=== PATIENT | female | born 1990 | race Caucasian/White ===

== ENCOUNTER 2018-09-13 20:45 | Emergency (ER) | payer MEDICAID ==
[2018-09-13 20:57] VITALS: BP 104/83
--- NOTE | 2018-09-13 21:49 | EDM.PDOC ---
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 She was told she can not get till September 2018. She came to the ed this pm because her came menstrual period lasted 2 days only and she was concerned she was . Pt will have "dye injected" in September 2018 in order to check if her tubes are open and healed from the ligation. She denied any pain, no dysuria, no N/V no dizziness, no breast tenderness or any other acute med issues. BP 104/83 RR 18 Pulse ox 100% on RA, Temp 97.0 pulse 83 BPM Onset Date: 09/13/18 Onset Time: 10:00 Duration: Hour(s): Location: Reports: Pelvis Severity: Mild Improves with: Reports: None Worsens with: Reports: None - Related Data Allergies Allergy/AdvReac Type Severity Reaction Status Date / Time No Known Allergies Allergy Verified 09/13/18 20:55 Past Medical History - Infectious Disease History Infectious Disease History: Reports: Chicken Pox - Past Surgical History Female Surgical History: Reports: Tubal Ligation Social & Family History - Family History Family Medical History: Noncontributory - Tobacco Use Smoking Status *Q: Current Every Day Smoker Years of Tobacco use: 10 Packs/Tins Daily: 0.3 - Caffeine Use Caffeine Use: Reports: Coffee, Soda - Recreational Drug Use Recreational Drug Use: No ED ROS GENERAL - Review of Systems Review Of Systems: See Below Constitutional: Reports: No Symptoms HEENT: Reports: No Symptoms Respiratory: Reports: No Symptoms Cardiovascular: Reports: No Symptoms Endocrine: Reports: No Symptoms GI/Abdominal: Reports: No Symptoms : Reports: No Symptoms Musculoskeletal: Reports: No Symptoms Skin: Reports: No Symptoms Neurological: Reports: No Symptoms Psychiatric: Reports: No Symptoms Hematologic/Lymphatic: Reports: No Symptoms Immunologic: Reports: No Symptoms ED EXAM - Physical Exam Exam: See Below Exam Limited By: No Limitations General Appearance: Alert, WD/WN, No Apparent Distress Eye Exam: Bilateral Eye: Normal Inspection Ears: Normal External Exam Nose: Normal Inspection Throat/Mouth: Normal Inspection Head: Atraumatic, Normocephalic Neck: Normal Inspection Respiratory/Chest: No Respiratory Distress, Lungs Clear Cardiovascular: Normal Peripheral Pulses GI/Abdominal Exam: Normal Bowel Sounds Rectal Exam: Deferred (Female) Exam: Deferred for Placenta Previa Back Exam: Normal Inspection Extremities: Normal Inspection Neurological: Alert, Oriented, CN II-XII Intact Psychiatric: Normal Affect Skin Exam: Warm Lymphatic: No Adenopathy Course - Vital Signs Text/Narrative:: 27 y.o.w.f s/p Tubal ligation 3 years ago, had her tubal ligation reversed in May 2018. She was told she can not get till September 2018. She came to the ed this pm because her came menstrual period lasted 2 days only and she was concerned she was . Pt will have "dye injected" in September 2018 in order to check if her tubes are open and healed from the ligation. She denied any pain, no dysuria, no N/V no dizziness, no breast tenderness or any other acute med issues. BP 104/83 RR 18 Pulse ox 100% on RA, Temp 97.0 pulse 83 BPM PE: WNWN WF in NAD wanting to know if she is and seen by me. Labs: HCG serum: <1 Impression: Neg Serum test Tx: none Reexam: Pt denied any discomfort but still wanted to be seen by me. Plan: D/C with instructions Last Recorded V/S: Last Vital Signs Temp Pulse 70 09/13/18 20:50 Resp 18 09/13/18 20:50 BP 104/83 09/13/18 20:50 Pulse Ox 100 09/13/18 20:50 - Orders/Labs/Meds Labs: Laboratory Tests 09/13/18 Range/Units 21:05 HCG, Quant < 1 L (<5) mIU/mL Departure - Departure Time of Disposition: 21:49 Disposition: Home, Self-Care 01 Condition: Good Clinical Impression: test negative - Discharge Information Instructions: Tubal Ligation Reversal Referrals: Fiorella Gordillo DIRECTOR [employer]ICAL SCIENCE [Primary Care Provider] - Forms: ED Department Discharge Additional Instructions: Please f/u with your PMD as needed.
== END 2018-09-13 21:50 | disposition home or self-care (01) ==
LOC: FB.ED 20:45
DX: Z32.02 Encounter for pregnancy test, result negative (principal); F17.210 Nicotine dependence, cigarettes, uncomplicated
CPT/HCPCS: 36415; 84702; 99282

== ENCOUNTER 2021-06-12 22:59 | Emergency (ER) | payer MEDICAID ==
[2021-06-12] MEDS ORDERED: Ciprofloxacin 500 MG Tab PO ONE (23:00)
[2021-06-12] MEDS ORDERED: traMADol 50 MG Tab PO ONE (23:00)
--- NOTE | 2021-06-12 23:16 | EDM.PDOC ---
ED HPI GENERAL MEDICAL PROBLEM - General Stated Complaint: RIB/CHEST PAIN Time Seen by Provider: 06/12/21 23:14 Source of Information: Reports: Patient History Limitations: Reports: No Limitations - History of Present Illness INITIAL COMMENTS - FREE TEXT/NARRATIVE: This is a 30 yo female with epispastic pain,and both upper quadrant pain since this morning. Nothing seems to improve it. Described as squeezing. Food apparently made it worse. No GI or symptoms - Related Data Allergies Allergy/AdvReac Type Severity Reaction Status Date / Time No Known Allergies Allergy Verified 09/13/18 20:55 Past Medical History - Infectious Disease History Infectious Disease History: Reports: Chicken Pox - Past Surgical History Female Surgical History: Reports: Tubal Ligation Social & Family History - Family History Family Medical History: No Pertinent Family History - Caffeine Use Caffeine Use: Reports: Coffee, Soda ED ROS GENERAL - Review of Systems Review Of Systems: Comprehensive ROS is negative, except as noted in HPI. ED EXAM, GI/ABD - Physical Exam Exam: See Below Exam Limited By: No Limitations Respiratory/Chest: No Respiratory Distress, Lungs Clear Cardiovascular: Normal Peripheral Pulses, Regular Rate, Rhythm GI/Abdominal Exam: Normal Bowel Sounds, Soft, Guarding, Tender. No: Distended, Mass, Hepatomegaly, Splenomegaly Neurological: Alert, Oriented Psychiatric: Normal Affect Course - Orders/Labs/Meds Orders: Active Orders 24 hr Category Date Time Status Abdomen Pelvis w Cont [CT] Stat Exams 06/12/21 23:12 Taken Labs: Laboratory Tests 06/12/21 06/12/21 06/12/21 Range/Units 23:25 23:25 23:25 WBC 7.3 (3.0-10.3) x10-3/uL RBC 4.11 (3.60-5.20) x10(6)uL Hgb 13.6 (11.4-15.5) g/dL Hct 38.9 (34.2-48.2) % MCV 94.7 (76.7-100.5) fL MCH 33.1 (23.9-33.9) pg MCHC 34.9 H (31.9-34.8) g/dL RDW 12.7 (12.3-16.5) % Plt Count 208 (151-488) x10(3)uL MPV 8.1 (7.1-12.4) fL Neut % (Auto) 58.7 (30.8-76.2) % Lymph % (Auto) 31.8 (18.4-52.1) % [place] % (Auto) 7.8 (4.4-15.7) % Eos % (Auto) 1.0 (0.6-8.1) % Baso % (Auto) 0.7 (0.2-1.5) % Neut # (Auto) 4.3 (1.5-6.3) x10-3/uL Lymph # (Auto) 2.3 (1.0-4.4) x10-3/uL [place] # (Auto) 0.6 (0.3-1.0) x10-3/uL Eos # (Auto) 0.1 (0.0-0.8) x10-3/uL Baso # (Auto) 0.1 (0.0-0.1) x10-3/uL Sodium 140 (135-145) mmol/L Potassium 3.6 (3.5-5.3) mmol/L Chloride 103 (100-110) mmol/L Carbon Dioxide 30 (21-32) mmol/L BUN 14 (7-18) mg/dL Creatinine 1.0 (0.55-1.02) mg/dL Est Cr Clr Drug Dosing TNP Estimated GFR (MDRD) > 60 (>60) BUN/Creatinine Ratio 14.0 (9-20) Glucose 110 (80-116) mg/dL Calcium 9.3 (8.6-10.2) mg/dL Total Bilirubin 0.3 (0.1-1.3) mg/dL AST 19 (5-25) IU/L ALT 22 (12-36) U/L Alkaline Phosphatase 68 (56-112) IU/L Total Protein 6.8 (6.0-8.0) g/dL Albumin 3.9 (3.5-5.2) g/dL Globulin 2.9 g/dL Albumin/Globulin Ratio 1.3 Lipase 124 (73-393) U/L Urine Color (YELLOW) Urine Appearance (CLEAR) Urine pH (5.0-6.5) Ur Specific [place] (1.010-1.025) Urine Protein (NEGATIVE) mg/dL Urine Glucose (UA) (NORMAL) mg/dL Urine Ketones (NEGATIVE) mg/dL Urine Occult Blood (NEGATIVE) Urine Nitrite (NEGATIVE) Urine Bilirubin (NEGATIVE) Urine Urobilinogen (NEGATIVE) mg/dL Ur Leukocyte Esterase (NEGATIVE) Urine RBC (0-5) Urine WBC (0-5) Ur Squamous Epith Cells (NS,R,O) Amorphous Sediment Urine Bacteria (NS) Urine Mucus (NS) Urine HCG, Qual (NEGATIVE) 06/12/21 06/12/21 Range/Units 23:57 23:57 WBC (3.0-10.3) x10-3/uL RBC (3.60-5.20) x10(6)uL Hgb (11.4-15.5) g/dL Hct (34.2-48.2) % MCV (76.7-100.5) fL MCH (23.9-33.9) pg MCHC (31.9-34.8) g/dL RDW (12.3-16.5) % Plt Count (151-488) x10(3)uL MPV (7.1-12.4) fL Neut % (Auto) (30.8-76.2) % Lymph % (Auto) (18.4-52.1) % [place] % (Auto) (4.4-15.7) % Eos % (Auto) (0.6-8.1) % Baso % (Auto) (0.2-1.5) % Neut # (Auto) (1.5-6.3) x10-3/uL Lymph # (Auto) (1.0-4.4) x10-3/uL [place] # (Auto) (0.3-1.0) x10-3/uL Eos # (Auto) (0.0-0.8) x10-3/uL Baso # (Auto) (0.0-0.1) x10-3/uL Sodium (135-145) mmol/L Potassium (3.5-5.3) mmol/L Chloride (100-110) mmol/L Carbon Dioxide (21-32) mmol/L BUN (7-18) mg/dL Creatinine (0.55-1.02) mg/dL Est Cr Clr Drug Dosing Estimated GFR (MDRD) (>60) BUN/Creatinine Ratio (9-20) Glucose (80-116) mg/dL Calcium (8.6-10.2) mg/dL Total Bilirubin (0.1-1.3) mg/dL AST (5-25) IU/L ALT (12-36) U/L Alkaline Phosphatase (56-112) IU/L Total Protein (6.0-8.0) g/dL Albumin (3.5-5.2) g/dL Globulin g/dL Albumin/Globulin Ratio Lipase (73-393) U/L Urine Color Yellow (YELLOW) Urine Appearance Cloudy (CLEAR) Urine pH 8.0 H (5.0-6.5) Ur Specific [place] 1.020 (1.010-1.025) Urine Protein Negative (NEGATIVE) mg/dL Urine Glucose (UA) Normal (NORMAL) mg/dL Urine Ketones 15 H (NEGATIVE) mg/dL Urine Occult Blood Large H (NEGATIVE) Urine Nitrite Negative (NEGATIVE) Urine Bilirubin Negative (NEGATIVE) Urine Urobilinogen 1 H (NEGATIVE) mg/dL Ur Leukocyte Esterase Small H (NEGATIVE) Urine RBC 5-10 H (0-5) Urine WBC 0-5 (0-5) Ur Squamous Epith Cells Moderate H (NS,R,O) Amorphous Sediment Moderate Urine Bacteria Moderate H (NS) Urine Mucus Moderate H (NS) Urine HCG, Qual Negative (NEGATIVE) Meds: Medications Discontinued Medications Generic Name Dose Route Start Last Admin Trade Name Sachaq PRN Reason Stop Dose Admin Iopamidol 75 ml 06/12/21 23:38 06/13/21 00:18 Iopamidol 755 Mg/Ml 75 Ml Bottle IV 06/12/21 23:39 75 ml ASDIRECTED ONE Administration Departure - Departure Time of Disposition: 00:53 Disposition: Home, Self-Care 01 Clinical Impression: Bacteriuria Abdominal pain Qualifiers: Abdominal location: generalized Qualified Code(s): R10.84 - Generalized abdominal pain - Discharge Information - Problem List & Annotations (1) Abdominal pain SNOMED Code(s): 46424643 Code(s): R10.9 - UNSPECIFIED ABDOMINAL PAIN Status: Acute Current Visit: No Qualifiers: Abdominal location: generalized Qualified Code(s): R10.84 - Generalized abdominal pain (2) Bacteriuria SNOMED Code(s): 05323458 Code(s): R82.71 - BACTERIURIA Status: Acute Current Visit: Yes - Problem List Review Problem List Initiated/Reviewed/Updated: Yes - My Orders Last 24 Hours: My Active Orders 06/12/21 23:12 Abdomen Pelvis w Cont [CT] Stat - Assessment/Plan Last 24 Hours: My Active Orders 06/12/21 23:12 Abdomen Pelvis w Cont [CT] Stat Plan: CT was neg. UA met criteria for culture. DC home on Tramadol and Cipro. See PCP on Thursday
[2021-06-12] MEDS ORDERED: Iopamidol 755 Mg/ML 75 ML Bottle IV ONE (23:38)
[2021-06-13 02:28] VITALS: BP 127/89; PULSE 73
== END 2021-06-13 01:05 | disposition home or self-care (01) ==
LOC: FB.ED 22:59
DX: R10.13 Epigastric pain (principal); R82.71 Bacteriuria
CPT/HCPCS: 36415; 74177; 80053; 81001; 81025; 83690; 85025; 99284-25; A9270-GY; Q9967